=== PATIENT | female | born 2000 | race African-American/Black ===

== ENCOUNTER 2020-10-30 15:43 | Emergency (ER) | payer OTHER ==
[~2020-10-30] VITALS: Ht 149.9 cm; Wt 49.9 kg
[~2020-10-30 15:43] MED LIST: NAPROSYN500 MG; ONDANSETRON HCL4 M2 PO; ZYRTEC10 MG; [UNRECOGNIZED DRUG - OTHER]
[2020-10-30 16:01] VITALS: BP 108/62
[2020-10-30 16:32] LABS: URINE BILIRUBIN NEGATIVE (Negative); URINE BLOOD NEGATIVE (Negative); URINE CLARITY SL CLOUDY; URINE COLOR YELLOW; URINE GLUCOSE-RANDOM* NEGATIVE (Negative); URINE KETONES NEGATIVE (Negative); URINE LEUKOCYTES-REFLEX 1+ (Negative); URINE NITRITE-REFLEX NEGATIVE (Negative); URINE PROTEIN (DIPSTICK) NEGATIVE (Negative); URINE SPECIFIC GRAVITY 1.015 (1.005-1.035)
[2020-10-30 16:40] LABS: BACTERIA-REFLEX 1-9 Few /HPF (None Seen); CASTS None Seen /LPF (None Seen); CRYSTALS None Seen /LPF (None Seen); SQUAMOUS >10 Many /LPF (0-3); URINE RBC None Seen /HPF (0-2); URINE WBC-REFLEX 0-5 Rare /HPF (0-5)
[2020-10-30] MEDS ORDERED: FLAGYL500 M1 PO (16:48)
[2020-10-30] MEDS ORDERED: DIFLUCAN150 MG PO (16:54)
== END 2020-10-30 16:58 | disposition home or self-care (01) ==
LOC: ER 15:43
PROVIDERS: Physician Assistant
DX: N76.0 Acute vaginitis (principal); B96.89 Other specified bacterial agents as the cause of diseases classified elsewhere

== ENCOUNTER 2020-12-30 10:24 | Emergency (ER) | payer OTHER ==
[~2020-12-30] VITALS: Ht 149.9 cm; Wt 49.9 kg
[~2020-12-30 10:24] MED LIST changes: +DIFLUCAN150 MG PO; +FLAGYL500 M1 PO
[2020-12-30 10:29] VITALS: BP 105/70
== END 2020-12-30 11:25 | disposition home or self-care (01) ==
LOC: ER 10:24
DX: S93.602A Unspecified sprain of left foot, initial encounter (principal); X50.1XXA Overexertion from prolonged static or awkward postures, initial encounter; Y93.89 Activity, other specified; Y92.89 Other specified places as the place of occurrence of the external cause; Y99.9 Unspecified external cause status